=== PATIENT | male | born 1975 | race Caucasian/White ===

== ENCOUNTER 2024-08-27 23:56 | Emergency (ER) | payer SELFPAY ==
[2024-08-28] MEDS: predniSONE 20 MG Tab PO ONE (00:17)
[2024-08-28] MEDS: Ketorolac 60 MG/2 ML SDV IM ONE (00:17)
== END 2024-08-28 00:30 | disposition home or self-care (01) ==
LOC: MW.ED 23:56
DX: M54.50 Low back pain, unspecified (principal); G89.29 Other chronic pain; Z79.899 Other long term (current) drug therapy
CPT/HCPCS: 96372; 99283; A9270; J1885

== ENCOUNTER 2024-08-28 10:54 | Emergency (ER) | payer SELFPAY | END 2024-08-28 11:55 | disposition home or self-care (01) | LOC: MW.ED 10:54 | DX: M54.9 Dorsalgia, unspecified (principal); Z75.3 Unavailability and inaccessibility of health-care facilities | CPT/HCPCS: 99282; 99283 ==